=== PATIENT | female | born 1960 | race Caucasian/White ===

== ENCOUNTER 2021-01-06 10:51 | Emergency (ER) | payer SELFPAY ==
[~2021-01-06] VITALS: Ht 160 cm; Wt 87.5 kg
[~2021-01-06 10:51] MED LIST: ATORVASTATIN CA40 MG PO; METOPROLOL SUCC25 MG PO; RANOLAZINE ER500 MG PO
[2021-01-06] MEDS ORDERED: ESCITALOPRAM OX10 MG PO (11:02)
--- NOTE | 2021-01-07 13:36 | EKG ---
[facility] [address] [facility] [place] [address] Signed Normal sinus rhythm Nonspecific ST and T wave abnormality Abnormal ECG When compared with ECG of 28-JUL-2019 14:34, T wave inversion now evident in Lateral leads Confirmed by WESLEY KHAN MD ([id number]) on 01/07/2021 1:36:17 PM Electronically Signed By: WESLEY KHAN MD 01/07/21 1336 PATIENT NAME: HONG DOMINIQUE Electrocardiogram DATE OF : 56 PHYSICIAN: WESLEY KHAN MD REPORT #: [id number] REPORT IS CONFIDENTIAL AND NOT TO BE RELEASED WITHOUT AUTHORIZATION
== END 2021-01-06 13:07 | disposition home or self-care (01) ==
LOC: ED 10:51
DX: R07.9 Chest pain, unspecified (principal); I10 Essential (primary) hypertension; E78.00 Pure hypercholesterolemia, unspecified; Z88.8 Allergy status to other drugs, medicaments and biological substances; Z79.899 Other long term (current) drug therapy
CPT/HCPCS: 71045; 80053; 84484; 85025; 93005; 93010; 99285-25

== ENCOUNTER 2023-01-04 17:39 | Emergency (ER) | payer SELFPAY ==
[~2023-01-04] VITALS: Ht 160 cm; Wt 81.1 kg
[~2023-01-04 17:39] MED LIST changes: +ESCITALOPRAM OX10 MG PO
[2023-01-04] MEDS ORDERED: ASPIRIN REGIMEN81 MG PO (18:05)
[2023-01-04 18:12] LABS: BASOPHILS 0.9 % (0-2); EOSINOPHILS 1.5 % (0-6); HEMATOCRIT 41.4 % (35.0-50.0); LYMPHOCYTES 22.4 % (24-44); MCH 28.1 (27-36); MCHC 33.8 g/dl (30-36); MCV 83.2 fl (81-99); MONOCYTES 5.8 % (0-12); NEUTROPHILS 69.4 % (39-80); PLATELET COUNT 220 K/uL (140-440); RBC 4.98 M/ul (4.3-5.7); RDW 13.5 (10.5-15.0)
[2023-01-04 18:35] LABS: ALBUMIN 3.8 g/dL (3.4-5.0); ALBUMIN/GLOBULIN RATIO 0.97 (1.1-2.4); ANION GAP 11.6 (7-21); BILIRUBIN, TOTAL 0.5 ng/dL (0.2-1.0); BUN/CREATININE RATIO 29.16 (6.0-28.6); CALCIUM 9.5 mg/dL (8.5-10.1); CREATININE, SERUM 0.72 mg/dL (0.55-1.02); POTASSIUM 3.6 mmol/L (3.5-5.1); PROTEIN, TOTAL 7.7 g/dL (6.4-8.2)
[2023-01-04 20:14] LABS: INR 0.97 (0.80-1.30); PROTIME 12.4 Sec (11.2-14.2)
[2023-01-04] MEDS ORDERED: HYDROCHLOROTH12.5 MG PO (20:32)
[2023-01-04 21:00] VITALS: BP 128/60
--- NOTE | 2023-01-05 15:08 | EKG ---
[facility] [address] [facility] [place] [address] Signed Sinus bradycardia Otherwise normal ECG When compared with ECG of 06-JAN-2021 10:59, T wave inversion no longer evident in Lateral leads Confirmed by SUSAN IBANEZ MD ([id number]) on 01/05/2023 3:08:23 PM Electronically Signed By: SUSAN IBANEZ 01/05/23 1508 PATIENT NAME: HONG DOMINIQUE BINA Electrocardiogram DATE OF : 56 PHYSICIAN: SUSAN IBANEZ REPORT #: [id number] REPORT IS CONFIDENTIAL AND NOT TO BE RELEASED WITHOUT AUTHORIZATION
== END 2023-01-04 21:00 | disposition home or self-care (01) ==
LOC: ED 17:39
PROVIDERS: Emergency Medicine; Family Medicine
DX: I10 Essential (primary) hypertension (principal); R07.89 Other chest pain; Z95.1 Presence of aortocoronary bypass graft; Z88.8 Allergy status to other drugs, medicaments and biological substances; Z79.899 Other long term (current) drug therapy; Z79.82 Long term (current) use of aspirin
CPT/HCPCS: 36415; 71045; 80053; 83735; 84484; 85025; 85379; 85610; 93005; 93010; A9270; J0360

== ENCOUNTER 2024-01-08 10:49 | Emergency (ER) | payer MEDICARE, OTHER ==
[~2024-01-08] VITALS: Ht 160 cm; Wt 119.0 kg
[~2024-01-08 10:49] MED LIST changes: +ASPIRIN REGIMEN81 MG PO; +HYDROCHLOROTH12.5 MG PO; +NITROGLYCERIN0.4 MG SL; +VITAMIN D3125 MC1 PO; +ZINC50 M2 PO
--- OUTSIDE RECORDS SUMMARY | 2024-01-08 10:51 | XMS ---
PreManage Notification: HONG DOMINIQUE Security Casting Operator Events No recent Security Events currently on file CRITERIA MET - [facility] - 2 Visits in 30 Days CARE PROVIDERS MIRIAM OSUNA [facility] Current PHONE: [phone] DEENA WASHINGTON [facility] Current FAMILY PHONE: [phone] Micah has no Care Guidelines for this patient. Michaelle VISIT COUNT (12 MO.) 2 [facility] TOTAL 2 NOTE: Visits indicate total known visits. ED/UCC VISIT TRACKING (12 MO.) 01/08/2024 10:50 [facility] TYPE: Emergency COMPLAINT: - CHEST PAIN 12/29/2023 12:10 [facility] [place] TYPE: Emergency COMPLAINT: - CHEST PAIN DIAGNOSES: - Allergy status to other drugs, medicaments and biological substances - Angina pectoris, unspecified - Essential (primary) hypertension - group home (current) use of aspirin - Other chest pain - Other local intermodal truck driver (current) drug therapy - Pure hypercholesterolemia, unspecified INPATIENT VISIT TRACKING (12 MO.) No inpatient visits to display in this time frame [email or web address]
[2024-01-08 11:15] LABS: BASOPHILS 0.6 % (0-2); EOSINOPHILS 1.8 % (0-6); HEMATOCRIT 42.9 % (35.0-50.0); HEMOGLOBIN 15.2 g/dL (12.0-18.0); LYMPHOCYTES 28.8 % (24-44); MCH 29.3 (27-36); MCHC 35.3 g/dl (30-36); MCV 82.8 fl (81-99); MONOCYTES 6.5 % (0-12); NEUTROPHILS 62.3 % (39-80); PLATELET COUNT 229 K/uL (140-440); RBC 5.18 M/ul (4.3-5.7); RDW 13.4 (10.5-15.0)
[2024-01-08] MEDS ORDERED: NITROGLYCERIN 0.4 MG SUBL SL ONE (11:15)
[2024-01-08 11:31] LABS: ALBUMIN 3.6 g/dL (3.4-5.0); ALBUMIN/GLOBULIN RATIO 0.84 (1.1-2.4); ANION GAP 13.1 (7-21); BILIRUBIN, TOTAL 0.3 ng/dL (0.2-1.0); BUN/CREATININE RATIO 16.86 (6.0-28.6); CALCIUM 9.2 mg/dL (8.5-10.1); CREATININE, SERUM 0.83 mg/dL (0.55-1.02); POTASSIUM 4.1 mmol/L (3.5-5.1); PROTEIN, TOTAL 7.9 g/dL (6.4-8.2)
[2024-01-08 12:00] VITALS: BP 125/75
--- NOTE | 2024-01-08 15:58 | EKG ---
[facility] [address] [facility] [place] [address] Signed Normal sinus rhythm Normal ECG When compared with ECG of 29-DEC-2023 12:16, No significant change was found Confirmed by Gee Arredondo MD ([id number]) on 01/08/2024 3:58:30 PM Electronically Signed By: GEE ARREDONDO MD 01/08/24 1558 PATIENT NAME: HONG DOMINIQUE BINA Electrocardiogram DATE OF : 56 PHYSICIAN: GEE ARREDONDO MD REPORT #: [id number] REPORT IS CONFIDENTIAL AND NOT TO BE RELEASED WITHOUT AUTHORIZATION
== END 2024-01-08 12:00 | disposition home or self-care (01) ==
LOC: ED 10:49
PROVIDERS: Emergency Medicine
DX: R07.89 Other chest pain (principal); I10 Essential (primary) hypertension; Z95.1 Presence of aortocoronary bypass graft; Z88.8 Allergy status to other drugs, medicaments and biological substances; Z79.899 Other long term (current) drug therapy; Z79.82 Long term (current) use of aspirin
CPT/HCPCS: 36415; 80053; 84484; 85025; 93005; 93010; 99284